=== PATIENT | female | born 1965 ===

== ENCOUNTER 2022-06-24 09:12 | Outpatient (CLI) | payer BC, SELFPAY | END 2022-06-24 09:13 | disposition home or self-care (01) | LOC: FBOREF 06-29 15:05 | PROVIDERS: Visit Provider Obstetrics & Gynecology | DX: N81.9 Female genital prolapse, unspecified (principal); R32 Unspecified urinary incontinence | CPT/HCPCS: 87086; 87186 ==

== ENCOUNTER 2022-07-19 16:12 | Outpatient (CLI) | payer BC, SELFPAY | END 2022-07-19 16:13 | disposition home or self-care (01) | LOC: FBOREF 16:12 | PROVIDERS: Visit Provider Obstetrics & Gynecology | DX: N39.0 Urinary tract infection, site not specified (principal); N81.4 Uterovaginal prolapse, unspecified; R32 Unspecified urinary incontinence | CPT/HCPCS: 87086 ==